=== PATIENT | male | born 1975 | race Two or more races ===

== ENCOUNTER 2019-11-08 19:04 | Emergency (ER) | payer SELFPAY ==
[~2019-11-08] VITALS: Ht 172.7 cm; Wt 104.3 kg
[2019-11-08] MEDS ORDERED: IV D5/ 0.9% NACL 1,000 ML IV ONE (19:10)
[2019-11-08] MEDS ORDERED: ONDANSETRON 4 MG/2 ML VIAL IV ONE (19:15)
[2019-11-08] MEDS ORDERED: LIDOCAINE 2% (UROJET) 10 ML JELLY MM ONE ×2 (19:15→19:26)
[2019-11-08] MEDS ORDERED: ONDANSETRON 4 MG/2 ML VIAL ONE (19:26)
[2019-11-08 19:37] LABS: BASOPHILS % (AUTO) 0.7 % (0.0-2.0); EOSINOPHILS % (AUTO) 0.4 % (0.0-7.0); HEMATOCRIT 40.9 % (36.7-47.1); HEMOGLOBIN 13.9 g/dL (12.5-16.3); LYMPHOCYTES # (AUTO) 1.3 K/uL (20.0-40.0); LYMPHOCYTES % (AUTO) 19.5 % (20.5-51.5); MEAN CORPUSCULAR HEMOGLOBIN 31.3 uug (23.8-33.4); MEAN CORPUSCULAR HGB CONC 34 g/dL (32.5-36.3); MEAN CORPUSCULAR VOLUME 92.2 fL (73.0-96.2); MONOCYTES # (AUTO) 0.4 K/uL (2.0-10.0); MONOCYTES % (AUTO) 6.1 % (0.0-11.0); NEUTROPHILS # (AUTO) 4.8 K/uL (1.8-8.9); NEUTROPHILS % (AUTO) 73.3 % (38.5-71.5); PLATELET COUNT (AUTO) 266 K/uL (152-348); RED BLOOD CELL COUNT(AUTO) 4.44 MIL/uL (4.06-5.63); WHITE BLOOD COUNT (AUTO) 6.6 K/uL (3.6-10.2)
[2019-11-08 19:48] LABS: CARBON DIOXIDE 25 mmol/L (21-32); CHLORIDE 99 mmol/L (98-107); CREATININE 0.8 mg/dL (0.6-1.3); GLUCOSE 142 mg/dL (74-106); POTASSIUM 3.2 mmol/L (3.5-5.1); UREA NITROGEN, BLOOD 6 mg/dL (7-18)
[2019-11-08 19:49] LABS: ETHANOL 538 MG/DL (0-0)
[2019-11-08 19:49] LABS: *BILIRUBIN,URIN NEGATIVE (NEGATIVE); *BLOOD, URINE NEGATIVE (NEGATIVE); *CLARITY,URINE CLEAR (CLEAR); *COLOR,URINE YELLOW (YELLOW); *KETONES,URINE NEGATIVE (NEGATIVE); LEUKOCYTE ESTERASE ,URINE NEGATIVE (NEGATIVE); NITRITE, URINE NEGATIVE (NEGATIVE); UGLUCOSE NEGATIVE (NEGATIVE)
--- NOTE | 2019-11-08 19:55 | NUR ---
PT BACK FR CT VIA [facility] ACC BY TECH KEPT WARM DRY AND COMFORTABLE MONITORED ACCORDINGLY
[2019-11-08 20:00] LABS: RBC,URINE 0-3 /HPF (0-3); SQUAMOUS EPITHELIAL CELL,UR FEW /HPF (NONE SEEN); WBC,URINE 0-3 /HPF (0-3)
[2019-11-08 20:04] LABS: ALANINE AMINOTRANSFERASE 134 U/L (16-63); ALKALINE PHOSPHATASE 80 U/L (50-136); ASPARTATE AMINOTRANSFERASE 123 U/L (15-37); BILIRUBIN,DIRECT 0.1 mg/dL (0.0-0.2); BILIRUBIN,TOTAL 0.2 mg/dL (0.2-1.0); TOTAL PROTEIN, SERUM 7.7 g/dL (6.4-8.2)
[2019-11-08 20:05] LABS: *AMPHETAMINE, URINE NEGATIVE (NEGATIVE); *BARBITURATE, URINE NEGATIVE (NEGATIVE); *CANNABINOID, URINE NEGATIVE (NEGATIVE); *COCCAINE, URINE NEGATIVE (NEGATIVE); *OPIATE, URINE NEGATIVE (NEGATIVE); *PHENCYCLIDINE SCREEN,URINE NEGATIVE (NEGATIVE)
[2019-11-08 20:06] LABS: ACETAMINOPHEN < 2.0 ug/mL (10-30)
[2019-11-08 20:26] LABS: THYROID STIMULATING HORMONE 1.894 mIU/mL (0.358-3.740)
--- NOTE | 2019-11-08 21:56 | NUR ---
PT IS ASLEEP BUT EASILY ROUSED MONITORED ACCORDINGLY SIDERAILSX2 UP BED AT LOWEST POSITION
--- NOTE | 2019-11-09 05:42 | NUR ---
PT AWAKE AND COHERENT AOX3 TO SELF PLACE AND SITUATION SPEAKS SOME CHINESE AND MAINLY CROATIAN ABLE TO TOLERATE 2CUPS OF WATER MONITORED ACCORDINGLY NAD O2 AT 2LPM : 98% [id number]
--- NOTE | 2019-11-09 06:46 | NUR ---
pt ambulatory w/ stable gait aox3 able to void able to tolerate meal
--- NOTE | 2019-11-09 06:47 | NUR ---
Patient discharged to home in stable conditon. Written and verbal after care instructions given. Patient verbalizes understanding of instructions. all belongings w/ pt
[2019-11-09 06:56] VITALS: BP 118/72
== END 2019-11-09 06:57 | disposition home or self-care (01) ==
LOC: ER 19:04
DX: F10.121 Alcohol abuse with intoxication delirium (principal); Y90.8 Blood alcohol level of 240 mg/100 ml or more
CPT/HCPCS: 36415; 70450; 71045; 72125; 80048; 80076; 80307; 81000; 81001; 83690; 83735; 84443; 84484; 85025; 85730; 93005; 96374; 99284; G0480 ×2; G0481; J2405; J7042; 70030-TC; A4663; C1758